=== PATIENT | male | born 1965 | race Caucasian/White ===

== ENCOUNTER 2018-08-29 15:49 | Emergency (ER) | payer OTHER ==
[~2018-08-29] VITALS: Ht 167.6 cm; Wt 87.1 kg
[~2018-08-29 15:49] MED LIST: AVALIDE 300-121 EACH; CRESTOR20 MG
== END 2018-08-29 17:58 | disposition home or self-care (01) ==
LOC: ER 15:49
DX: S20.312A Abrasion of left front wall of thorax, initial encounter (principal); S50.02XA Contusion of left elbow, initial encounter; W10.8XXA Fall (on) (from) other stairs and steps, initial encounter; Y93.89 Activity, other specified; Y92.89 Other specified places as the place of occurrence of the external cause; Y99.8 Other external cause status